=== PATIENT | female | born 1960 | race Two or more races ===

== ENCOUNTER 2018-02-28 13:38 | Outpatient (CLI) | payer OTHER | END 2018-02-28 13:45 | disposition home or self-care (01) | LOC: MAMO-SONO 13:38 | DX: Z12.31 Encounter for screening mammogram for malignant neoplasm of breast (principal); N64.89 Other specified disorders of breast; N64.4 Mastodynia; N60.11 Diffuse cystic mastopathy of right breast; R10.2 Pelvic and perineal pain ==

== ENCOUNTER 2018-09-08 07:47 | Emergency (ER) | payer OTHER ==
[~2018-09-08] VITALS: Ht 165.1 cm; Wt 102.5 kg
[2018-09-08] MEDS ORDERED: DIOVAN HCT 3201 EACH PO (07:57)
[2018-09-08] MEDS ORDERED: ZANTAC150 M3 PO (07:57)
[2018-09-08] MEDS ORDERED: TRICOR48 MG PO (07:58)
[2018-09-08] MEDS ORDERED: LIPITOR20 MG PO (07:58)
[2018-09-08] MEDS ORDERED: AMRIX15 MG PO (07:59)
== END 2018-09-08 12:06 | disposition home or self-care (01) ==
LOC: ER 07:47
DX: M62.838 Other muscle spasm (principal)

== ENCOUNTER 2018-11-30 14:41 | Outpatient (CLI) | payer OTHER ==
[~2018-11-30 14:41] MED LIST: AMRIX15 MG PO; DIOVAN HCT 3201 EACH PO; LIPITOR20 MG PO; TRICOR48 MG PO; ZANTAC150 M3 PO
== END 2018-11-30 14:55 | disposition home or self-care (01) ==
LOC: MRI 14:41
DX: M54.2 Cervicalgia (principal); M54.12 Radiculopathy, cervical region; M18.0 Bilateral primary osteoarthritis of first carpometacarpal joints
CPT/HCPCS: 72141

== ENCOUNTER 2018-12-29 13:52 | Outpatient (CLI) | payer OTHER | END 2018-12-29 13:53 | disposition home or self-care (01) | LOC: SONOGRAMA 13:52 → MAMO-SONO 14:15 | DX: E04.1 Nontoxic single thyroid nodule (principal) ==

== ENCOUNTER 2019-01-04 13:07 | Outpatient (CLI) | payer OTHER | END 2019-01-04 14:00 | disposition home or self-care (01) | LOC: NUCLEAR 13:07 | DX: M81.0 Age-related osteoporosis without current pathological fracture (principal) ==

== ENCOUNTER 2019-01-04 14:05 | Outpatient (CLI) | payer OTHER | END 2019-01-04 14:14 | disposition home or self-care (01) | LOC: RAD 14:05 | DX: M25.561 Pain in right knee (principal); M25.562 Pain in left knee; M54.5 Low back pain; M54.6 Pain in thoracic spine ==

== ENCOUNTER 2020-05-13 10:17 | Outpatient (CLI) | payer OTHER | END 2020-05-13 10:37 | disposition home or self-care (01) | LOC: MAMO-SONO 10:17 | PROVIDERS: ATTEND Internal Medicine Endocrinology, Diabetes & Metabolism | DX: Z12.31 Encounter for screening mammogram for malignant neoplasm of breast (principal); N61.1 Abscess of the breast and nipple ==

== ENCOUNTER 2020-11-08 13:28 | Outpatient (CLI) | payer OTHER | END 2020-11-08 13:43 | disposition home or self-care (01) | LOC: SONOGRAMA 13:28 | PROVIDERS: ATTEND Internal Medicine Endocrinology, Diabetes & Metabolism | DX: E04.1 Nontoxic single thyroid nodule (principal) ==

== ENCOUNTER 2020-12-01 19:58 | Emergency (ER) | payer OTHER ==
[~2020-12-01] VITALS: Ht 167.6 cm; Wt 80.7 kg
== END 2020-12-01 20:38 | disposition home or self-care (01) ==
LOC: ER 19:58
DX: S51.821A Laceration with foreign body of right forearm, initial encounter (principal); W25.XXXA Contact with sharp glass, initial encounter; Y93.89 Activity, other specified; Y92.89 Other specified places as the place of occurrence of the external cause; Y99.8 Other external cause status

== ENCOUNTER 2021-01-23 14:17 | Outpatient (CLI) | payer OTHER | END 2021-01-23 14:55 | disposition home or self-care (01) | LOC: NUCLEAR 14:17 | PROVIDERS: ATTEND Internal Medicine Endocrinology, Diabetes & Metabolism | DX: M81.0 Age-related osteoporosis without current pathological fracture (principal) ==

== ENCOUNTER 2022-06-09 12:54 | Outpatient (CLI) | payer OTHER | END 2022-06-09 13:26 | disposition home or self-care (01) | LOC: SONOGRAMA 12:54 | PROVIDERS: ATTEND Internal Medicine Endocrinology, Diabetes & Metabolism | DX: M15.8 Other polyosteoarthritis (principal); E06.3 Autoimmune thyroiditis; R80.9 Proteinuria, unspecified; E11.65 Type 2 diabetes mellitus with hyperglycemia ==

== ENCOUNTER 2022-11-29 01:46 | Emergency (ER) | payer OTHER ==
[~2022-11-29] VITALS: Ht 160 cm; Wt 89.8 kg
[2022-11-29] MEDS ORDERED: TUSNEL LIQUID178 ML PO (04:15)
[2022-11-29] MEDS ORDERED: ZITHROMAX500 MG PO (04:15)
== END 2022-11-29 04:36 | disposition home or self-care (01) ==
LOC: ER 01:46
DX: U07.1 COVID-19 (principal)

== ENCOUNTER 2023-06-23 14:33 | Outpatient (CLI) | payer OTHER ==
[~2023-06-23 14:33] MED LIST changes: +TUSNEL LIQUID178 ML PO; +ZITHROMAX500 MG PO
== END 2023-06-23 14:39 | disposition home or self-care (01) ==
LOC: MAMO-SONO 14:33
PROVIDERS: ATTEND Obstetrics & Gynecology Maternal & Fetal Medicine
DX: Z12.31 Encounter for screening mammogram for malignant neoplasm of breast (principal); N63.0 Unspecified lump in unspecified breast; N64.4 Mastodynia; N60.11 Diffuse cystic mastopathy of right breast

== ENCOUNTER 2023-08-27 14:12 | Outpatient (CLI) | payer OTHER | END 2023-08-27 14:24 | disposition home or self-care (01) | LOC: RAD 14:12 | PROVIDERS: ATTEND Internal Medicine Rheumatology | DX: M05.79 Rheumatoid arthritis with rheumatoid factor of multiple sites without organ or systems involvement (principal); M46.1 Sacroiliitis, not elsewhere classified; I10 Essential (primary) hypertension ==